=== PATIENT | male | born 1990 | race Caucasian/White ===

== ENCOUNTER 2020-05-16 08:36 | Emergency (ER) | payer SELFPAY ==
[2020-05-16] VITALS (22 sets, daily range): BP systolic 106–134; BP diastolic 64–78; PULSE 55–91; RESP 16–20; O2SAT 98–100
--- NOTE | ~2020-05-16 | CT_ITS ---
EXAMINATION: CT abdomen pelvis w con DATE: 05/16/2020 10:14 INDICATION: Mid and lower abdominal pain for 2 days. Nausea and vomiting. Low back pain. TECHNIQUE: Computed tomography (CT) of the abdomen and pelvis was performed with 100 cc Omnipaque 350 intravenous contrast. The dose-length product was 466.46 mGy-cm. Automated exposure control and iter ative reconstruction technique were employed. COMPARISON: No prior studies for comparison. FINDINGS: Lung bases are unremarkable. Heart size normal. No significant pleural or pericardial effus ion. The liver, spleen, pancreas, adrenal glands and kidneys are unremarkable. Gallbladder is present. The re is a large amount of fluid and debris throughout the small bowel and colon. No definite obstructio n is identified. Moderate retained fecal material in the distal colon. Bladder wall is mildly thicken ed. No acute osseous abnormality. IMPRESSION: 1. Moderately distended fluid and debris-filled small bowel and colon, most likely ileus. No obstruct ion. 2: Mild bladder wall thickening which may be due to underdistention, although cystitis should be cons idered in the appropriate clinical setting. Reviewed, dictated and finalized at location A. [employer] IMPRESSION: 1. Moderately distended fluid and debris-filled small bowel and colon, most lik mars ileus. No obstruction. 2: Mild bladder wall thickening which may be due to underdistention, although c ystitis should be considered in the appropriate clinical setting.
[2020-05-16] MEDS: ONDANSETRON INJ 4 MG/2 ML VIAL IV PUSH (08:55)
[2020-05-16 09:09] LABS: Basophils Absolute Auto 0.02 K/mm3 (0.00-0.10); Basophils Percent Auto 0.2 % (0.0-1.0); Eosinophils Absolute Auto 0.18 K/mm3 (0.02-0.50); Eosinophils Percent Auto 1.7 % (1.0-6.0); Hematocrit 46.7 % (40.0-54.0); Hemoglobin 15.8 g/dL (14.0-18.0); Immature Granulocyte Absolute 0.04 K/mm3 (0.00-0.00); Immature Granulocyte Percent A 0.4 % (0.0-0.0); Lymphocytes Absolute Auto 1.39 K/mm3 (1.10-4.50); Lymphocytes Percent Auto 13.3 % (18.0-42.0); Mean Corpuscular HGB Conc 33.8 g/dL (32.0-36.0); Mean Corpuscular Volume 91.6 fL (78.0-102.0); Mean Platelet Volume 9.3 fl (8.7-11.0); Monocytes Absolute Auto 0.48 K/mm3 (0.10-0.90); Monocytes Percent Auto 4.6 % (2.0-11.0); Neutrophils Absolute Auto 8.4 K/mm3 (1.7-7.2); Neutrophils Percent Auto 79.8 % (50.0-70.0); Platelet Count Result 243 K/mm3 (150-420); Red Cell Distribution Width 12.1 % (11.6-14.4); White Blood Count 10.5 K/mm3 (4.8-10.8)
[2020-05-16 09:24] LABS: Alanine Aminotransferase 15 U/L (16-63); Albumin Level 3.7 g/dL (3.4-5.0); Alkaline Phosphatase 68 U/L (46-116); Amylase 42 U/L (25-115); Anion Gap 5 mmol/L (8-16); Aspartate Amino Transferase < 10 U/L (15-37); Bilirubin,Total 1.4 mg/dL (0.00-1.00); Blood Urea Nitrogen 10 mg/dL (7-18); Calcium 8.8 mg/dL (8.5-10.1); Carbon Dioxide 30 mmol/L (21-32); Chloride 104 mmol/L (98-108); Estimated CRCL calculation 75 ml/min; Estimated Glomerular Filt Rate > 60; Glucose 85 mg/dL (70-99); Lipase 64 U/L (73-393); Osmolality Calculated 286 mOsm/kg (285-295); Potassium 4.2 mmol/L (3.5-5.1); Sodium 139 mmol/L (136-145); Total Protein 6.9 g/dL (6.4-8.2)
[2020-05-16 09:29] LABS: SARS-CoV-2 Ag Negative (Negative)
--- NOTE | 2020-05-16 09:45 | ED.ABDPAIN ---
HPI - Abdominal Pain General Source: patient Mode of arrival: EMS Limitations: no limitations History of Present Illness HPI narrative: Patient comes in with complaint of abdominal pain over the last two days. This has been moderately severe, ongoing, not relieved by measures at home, and associated with nausea yesterday. He describes this as a pain that goes from his abdomen to his back. He has also had issues with constipation. Pain has decreased now. Pertinent past history: constipation Pain Consistency: intermittent Location: diffuse Severity: moderate Quality: cramping Radiation: none Relieving factors: rest Associated symptoms: nausea and vomiting Related Data Allergies Allergy/AdvReac Type Severity Reaction Status Date / Time aspirin Allergy Vomiting Verified 05/16/20 08:42 Penicillins Allergy Hives Verified 05/16/20 08:42 Review of Systems Constitutional: Constitutional: Reports no additional constitutional complaints Eyes: Eyes: Reports no additional eye complaints ENT: Reports system reviewed and no additional complaints, except as documented Cardiovascular: Cardiovascular: Reports no additional cardiovascular complaints Respiratory: Respiratory: Reports no additional respiratory complaints Gastrointestinal: Gastrointestinal: Reports no additional gastrointestinal complaints Genitourinary: Genitourinary: Reports no additional male genitourinary complaints Musculoskeletal: Musculoskeletal: Reports no additional musculoskeletal complaints Integumentary/Breasts: Skin/Breast: Reports system reviewed and no additional complaints, except as docu Neurologic: Reports system reviewed and no additional complaints, except as documented Psychiatric: Psychiatric: Reports no additional psychiatric complaints Endocrine: Endocrine: Reports no additional endocrine complaints Hematologic/Lymphatic: Hematologic/Lymphatic: Reports no additional hematologic/lymphatic complaints Allergic/Immunologic: Allergic/Immunologic: Reports no additional allergic/immunologic complaints [facility] Surgical History Surgical History No significant past surgical history Social History Social History Smoking status: Current every day smoker Tobacco type: cigarettes Additional smoking assessment comments: 1/2 PPD Alcohol intake: never Substance use type: marijuana Exam Const: General: no acute distress HENMT: Head: normal to inspection Ears: TM abnormal Face and sinus: normal facial exam Teeth and gingiva: dentition normal Eyes: Conjunctivae: conjunctivae normal Pupils: Equal, round and reactive pupils present Neck: Neck: normal visual inspection Chest: Chest palpation & inspection: normal inspection of the chest Resp: Effort & Inspection: normal respiratory effort Auscultation: clear to auscultation bilaterally Cardio: Rate: regular rate Rhythm: regular rhythm GI: GI Palp: Yes Soft to palpation Percussion: Yes normal to percussion Auscultation: normal bowel sounds : Testes: Testes normal Skin: General skin exam: normal color Neuro: General: patient oriented x3 and moves all extremities Speech: normal speech Extrem: General: normal to inspection Psych: Appearance: grossly normal Mental Status: mental status grossly normal Course Course Emergency Course: Labs and CT scan were reviewed with the patient. He was offered admission. He declined. I will reluctantly discharge him. Home with prn zofran and Prn tramadol as needed for pain. I asked him to return to ER if he develops further nausea or vomiting, or has any fever or chills. Vital Signs Vital signs: Vital Signs Pulse Rate 55 L 05/16/20 08:43 Respiratory Rate 20 05/16/20 08:43 Blood Pressure 134/64 05/16/20 08:43 Pulse Oximetry 100 05/16/20 08:43 Pulse Rate 91 05/16/20 13:57 Respiratory Rate 16 05/16/20 13
[2020-05-16 09:49] LABS: Influenza Control Valid (Valid)
--- NOTE | 2020-05-16 11:00 | PC.NURSE ---
Pt sleeping, pt states he is currently unable to provide urine sample.
[2020-05-16] MEDS: SODIUM CHLORIDE 0.9% IV 1,000 ML 500 ML IV CONT (11:03)
--- NOTE | 2020-05-16 12:00 | PC.NURSE ---
Pt continues to sleep, easily awakes with verbal stimuli, pt still states he is unable to provide urine sample.
[2020-05-16 12:37] LABS: Add Urine Microscopic? YES; Appearance Urine Clear (Clear); Bilirubin Urine Negative (Negative); Blood Urine Negative (Negative); Color Urine Yellow (Yellow); Glucose Urine UA Negative (Negative); Ketones Urine 1+ (Negative); Leukocyte Esterase Ur Negative (Negative); Nitrate Urine Negative (Negative); Protein Urine Negative (Negative); Specific Grav Ur <= 1.005 (1.010-1.020); Urobilinogen Urine 0.2 mg/dL (0.2-1.0); pH Urine 6.5 (5.0-8.0)
[2020-05-16 12:39] LABS: RBC Urine 0-2 /hpf (0-2); WBC Urine 0-3 /hpf (0-3)
[2020-05-16 12:40] LABS: Bacteria Urine None seen /hpf
[2020-05-16 12:41] LABS: Amphetamine Screen Urine Positive (Negative); Barbiturate Screen Urine Negative (Negative); Benzodiazepines Screen Urine Negative (Negative); Cannabinoid Screen Urine Positive (Negative); Cocaine Screen Urine Negative (Negative); Methadone Screen Urine Negative (Negative); Opiate Screen Urine Negative (Negative); Phencyclidine Screen Urine Negative (Negative)
== END 2020-05-16 13:57 | disposition home or self-care (01) ==
PROVIDERS: Emergency Provider Emergency Medicine
DX: K56.0 Paralytic ileus (principal)
CPT/HCPCS: 36415; 74177; 80053; 80307; 81001; 82150; 83690; 85025; 87426; 87804; 96361; 96374; 99283; 99284; J2405; J7030; Q9965; Q9967

== ENCOUNTER 2021-01-14 17:05 | Emergency (ER) | payer SELFPAY ==
--- NOTE | ~2021-01-14 | XR_ITS ---
EXAMINATION: XR finger 1st LT min 2V DATE: 01/14/2021 17:42 INDICATION: Laceration at the mid left second digit TECHNIQUE: Dorsal palmar, lateral and oblique views of the left second digit were obtained COMPARISON: None FINDINGS: Alignment is normal. No fracture. Joint spaces are normal. Soft tissue swelling about the left second digit with suggestion of a skin laceration 5 proximal to the palmar crease at the proximal interphal angeal joint. A couple minute submillimeter densities which could represent foreign debris along the suspected laceration approximately 1-1.5 mm from the level of the skin surface. IMPRESSION: 1. A couple minute submillimeter densities potentially representing foreign debris along a likely lac eration at the palmar aspect of the second proximal phalanx. No osseous abnormality. Reviewed, dictated and finalized at location A. IMPRESSION: 1. A couple minute submillimeter densities potentially representing foreign caitlyn ris along a likely laceration at the palmar aspect of the second proximal phala nx. No osseous abnormality.
[2021-01-14 17:05] VITALS: BP 139/82; PULSE 96; RESP 18; TEMP 36.7; O2SAT 99
[2021-01-14] MEDS: IBUPROFEN 600 MG TABLET PO (17:31)
--- NOTE | 2021-01-14 17:31 | ED.WOUNDLAC ---
HPI - Wound/Laceration General Chief Complaint: Wound/Laceration Stated Complaint: Left hand pointer finger cut Time Seen by Provider: 01/14/21 17:08 Source: patient and RN notes reviewed Mode of arrival: ambulatory Limitations: no limitations History of Present Illness Onset (ago): minute(s) (30) Extremity Location: Left: hand Place: home Patient tetanus UTD: No Context: accidental Associated symptoms: pain Treatments prior to arrival: bandage Related Data Allergies Allergy/AdvReac Type Severity Reaction Status Date / Time Penicillins Allergy Hives Verified 05/16/20 08:42 aspirin AdvReac Vomiting Verified 01/14/21 17:33 propoxyphene [From Darvon-N] AdvReac Itching Verified 01/14/21 17:28 Review of Systems Review of Systems: All systems reviewed & are unremarkable except as noted in HPI and below Constitutional: Constitutional: Reports as per HPI and Reports no additional constitutional complaints Eyes: Eyes: Reports as per HPI and Reports no additional eye complaints ENT: Reports system reviewed and no additional complaints, except as documented and Reports as per HPI Cardiovascular: Cardiovascular: Reports as per HPI and Reports no additional cardiovascular complaints Respiratory: Respiratory: Reports as per HPI and Reports no additional respiratory complaints Gastrointestinal: Gastrointestinal: Reports as per HPI and Reports no additional gastrointestinal complaints Genitourinary: Genitourinary: Reports no additional male genitourinary complaints and Reports as per HPI Musculoskeletal: Musculoskeletal: Reports no additional musculoskeletal complaints and Reports as per HPI Comments: left index finger palmar laceration Integumentary/Breasts: Skin/Breast: Reports system reviewed and no additional complaints, except as docu and Reports as per HPI Neurologic: Reports system reviewed and no additional complaints, except as documented and Reports as per HPI Psychiatric: Psychiatric: Reports no additional psychiatric complaints and Reports as per HPI Endocrine: Endocrine: Reports no additional endocrine complaints and Reports as per HPI Hematologic/Lymphatic: Hematologic/Lymphatic: Reports no additional hematologic/lymphatic complaints and Reports as per HPI Allergic/Immunologic: Allergic/Immunologic: Reports no additional allergic/immunologic complaints and Reports as per HPI PMFSH Past Medical History Medical History Finger laceration Surgical History Surgical History No significant past surgical history Social History Social History Smoking status: Current every day smoker Tobacco type: cigarettes Additional smoking assessment comments: 1/2 PPD Alcohol intake: never Substance use type: marijuana Exam Const: General: healthy appearing, no acute distress and alert Nutritional Appearance: well nourished Orientation/consciousness: patient oriented x3 HENMT: Head: normal to inspection Ears: external ears normal and TM's normal bilaterally General nose exam: Normal external nose present and Normal nares present Mouth: Yes moist mucous membranes Eyes: Conjunctivae: conjunctivae normal Pupils: Equal, round and reactive pupils present EOM: EOMs intact bilaterally Neck: Neck: normal visual inspection and no lymphadenopathy Chest: Chest palpation & inspection: normal inspection of the chest Resp: Effort & Inspection: normal respiratory effort Auscultation: clear to auscultation bilaterally Cardio: Rate: regular rate Rhythm: regular rhythm GI: GI Palp: Yes Soft to palpation Percussion: Yes normal to percussion Auscultation: normal bowel sounds Back/Spine/Pelvis: Back: no CVA tenderness Skin: General skin exam: normal color Rashes: no rashes Neuro: General: patient oriented x3 and moves all extremities Extrem: Gene
[2021-01-14] MEDS: TETANUS,DIPHTHERIA,AC PERTUSSIS ADULT 0.5 ML (ADACEL) (17:32)
[2021-01-14] MEDS: LIDOCAINE HCL 2% PF INJ 5 ML VIAL 2 ML INFILTRATE (17:54)
[2021-01-14] MEDS: NEOMYCIN/POLYMYXIN/BACITRACIN OINTMENT PACKET 2 PACKET (18:10)
[2021-01-14] MEDS: CEPHALEXIN 500 MG CAPSULE PO (18:20)
--- NOTE | 2021-01-14 18:32 | PC.NURSE ---
shey crackers and milk given to pt as requested, dienies dizziness. wanting something in stomach with antibiotic.
[2021-01-14 18:33] VITALS: BP 128/75; PULSE 81; RESP 20; TEMP 37.1; O2SAT 98
== END 2021-01-14 18:38 | disposition home or self-care (01) ==
PROVIDERS: Emergency Provider Emergency Medicine
DX: S61.211A Laceration without foreign body of left index finger without damage to nail, initial encounter (principal); W45.8XXA Other foreign body or object entering through skin, initial encounter
CPT/HCPCS: 12001; 73140; 90471; 90715; 99283; A9270